=== PATIENT | female | born 1975 | race Caucasian/White ===

== ENCOUNTER 2022-06-29 09:02 | Outpatient (CLI) | payer OTHER, SELFPAY ==
--- NOTE | ~2022-06-29 | MM_ITS ---
EXAMINATION: MM scrn cooper implant BI w salome HISTORY: Screening mammogram TECHNIQUE: Craniocaudal and mediolateral oblique 3-D tomosynthesis images with implant displacement a nd synthetic 2-D images were generated. Craniocaudal and mediolateral oblique views of the breasts wi thout implant displacement were obtained using full field digital mammography. CAD analysis was submi tted and interpreted. COMPARISON: 10/11/2017 BREAST PARENCHYMAL COMPOSITION: The breasts are heterogeneously dense, which may obscure small masses . FINDINGS: There is no evidence of suspicious mass, calcification, or architectural distortion to sugg est malignancy in either breast. There has been no suspicious interval change. IMPRESSION: 1. No mammographic evidence of malignancy. 2. Recommend routine screening mammography in one year. BI-RADS Category 1: Negative Reviewed, dictated and finalized at location A. PRESS OPERATOR
== END 2022-06-29 09:03 | disposition home or self-care (01) ==
LOC: ANHIMG 09:04
PROVIDERS: PCP Family Medicine; Visit Provider Obstetrics & Gynecology
DX: Z12.31 Encounter for screening mammogram for malignant neoplasm of breast (principal)
CPT/HCPCS: 77063; 77067

== ENCOUNTER 2022-08-02 13:18 | Outpatient (NON) | payer OTHER, SELFPAY | END 2022-08-02 13:19 | disposition home or self-care (01) | LOC: ANHLAB 08-03 13:20 | PROVIDERS: PCP Family Medicine; Visit Provider Nurse Practitioner | DX: D18.01 Hemangioma of skin and subcutaneous tissue (principal) | CPT/HCPCS: 88305 ==

== ENCOUNTER 2024-03-01 10:41 | Emergency (ER) | payer OTHER, SELFPAY ==
--- NOTE | 2024-03-01 10:46 | ED.GENADULT ---
HPI - General Adult General Chief complaint: Upper Respiratory Infection Stated complaint: sore throat Time Seen by Provider: 03/01/24 10:46 Source: patient Mode of arrival: ambulatory Limitations: no limitations History of Present Illness HPI narrative: 48-year-old female patient presents to the [facility] with complaint sore throat x2 days. Patient states she had strep throat back in July had to be placed on Augmentin and Z-Dariel for 20 days because of persistence. Patient states she noticed white patches in the back of her throat today when to come in and get checked out. Patient states she does have a little bit of a cough but denies fevers, body aches or chills. Denies any abdominal pain, nausea, vomiting or diarrhea. Patient states she has been taking Zyrtec for her symptoms. Related Data Home Medications Medication Instructions Recorded Confirmed cetirizine 10 mg capsule (Zyrtec) 10 mg PO DAILY 09/20/21 03/01/24 cholecalciferol (vitamin D3) 25 25 mcg PO DAILY 08/22/23 03/01/24 mcg/drop (1,000 unit/drop) oral drops Allergies Allergy/AdvReac Type Severity Reaction Status Date / Time doxycycline AdvReac Unknown Nausea Verified 03/01/24 10:48 Review of Systems Review of Systems: CONSTITUTIONAL: Denies fever, chills, or sweats. EYES: Denies visual changes, redness, or discharge. ENT: Denies rhinorrhea, congestion, Positive sore throat, denies otalgia. CARDIOVASCULAR: Denies chest pain, palpitations, or edema. RESPIRATORY: positive cough , denies dyspnea. GASTROINTESTINAL: Denies abdominal pain, nausea, vomiting, or diarrhea. GENITOURINARY: Denies dysuria or hematuria. SKIN: Denies rash or itching. MUSCULOSKELETAL: Denies back pain, joint pain, or myalgia. NEUROLOGIC: Denies headache, numbness, or weakness. PSYCHIATRIC: Denies anxiety or depression. 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 There is no relevant family history pertinent to the presenting complaint. Exam Narrative: GENERAL: Well-appearing, well-nourished, and in no acute distress. HEAD: Normocephalic, atraumatic. EYES: PERRLA and EOMI. ENT: Nares clear, no rhinorrhea or epistaxis. Mucous membranes moist. post terrier pharynx with slight erythema but no tonsillar enlargement, no exudates or lesions present. NECK: Supple. No lymphadenopathy CHEST: Clear to auscultation. No respiratory distress. HEART: Regular rate and rhythm. No murmur heard. Normal peripheral pulses. ABDOMEN: Soft, nontender, nondistended, normal active bowel sounds. EXTREMITIES: Normal range of motion. No edema. SKIN: Warm, dry, no rash. NEURO: No focal deficits. Alert and oriented x3. Course Course Level of Care: Express Care Visit Reevaluation(s) Reevaluation #1: re-evaluated patient notified her that her strep swab today is negative. We will send it off to lab for culture if the culture comes back positive at that time we will call her antibiotics otherwise continue [id number]-vsnautu medication, warm salt water gargles, hot tea and honey as needed to help with the throat pain. Patient verbalized understanding denies any other questions or concerns at this time. Date: 03/01/24 Time: 11:32 Vital Signs Vital signs: Vital Signs Temperature 36.5 C 03/01/24 10:49 Pulse Rate 87 03/01/24 10:49 Respiratory Rate 18 03/01/24 10:49 Blood Pressure 122/74 03/01/24 10:49 Pulse Oximetry 96 03/01/24 10:49 Oxygen Delivery Room Air 03/01/24 10:49 Temperature 36.5 C 03/01/24 10:52 Pulse Rate 87 03/01/24 10:52 Respiratory Rate 18 03/01/24 10:52 Blood Pressure 122/74 03/01/24 10:52 Pulse Oximetry 96 03/01/24 10:52 Oxygen Delivery Room Air 03/01/24 10:52 Vital signs reviewed. Medical Decision Making MDM Narrative Medical decision making narrative: Plan care for patients to swab her today for strep. I will reassess her once this has resulted. Differential Diagnosis Differential Diagnosis: Differential diagnosis: Allergic rhinitis, chronic sinusitis, tonsillitis, acute sinusitis, infectious mononucleosis, seasonal influenza, pertussis, diphtheria, meningococcal disease, viral syndrome, viral bronchitis, RSV, COVID-19 Vital Signs Vital Signs: Vital Signs Temperature 36.5 C 03/01/24 10:49 Pulse Rate 87 03/01/24 10:49 Respiratory Rate 18 03/01/24 10:49 Blood Pressure 122/74 03/01/24 10:49 Pulse Oximetry 96 03/01/24 10:49 Oxygen Delivery Room Air 03/01/24 10:49 Temperature 36.5 C 03/01/24 10:52 Pulse Rate 87 03/01/24 10:52 Respiratory Rate 18 03/01/24 10:52 Blood Pressure 122/74 03/01/24 10:52 Pulse Oximetry 96 03/01/24 10:52 Oxygen Delivery Room Air 03/01/24 10:52 Lab Data Labs: Lab Results 03/01/24 Range/Units 11:08 POC Grp A Strep Screen Negative (Negative) Critical Care Time Critical Care Time Critical Care Time: No Discharge Plan Discharge Clinical Impression: Acute viral pharyngitis Patient Disposition: Home, Self-Care Condition: Stable Instructions: Antibiotic Form, Pharyngitis (ED) Additional Instructions: A sore throat can be caused by an infection from a virus or bacteria. Sore throat can also be caused by postnasal drip, allergies, and exposure to smoke. A viral sore throat last 3-4 days and cannot be treated with antibiotics. One type of sore throat virus, infectious mononucleosis ( mono ), can last for 3 weeks and older children. The germs that cause these infections are contagious and can be spread by coughing or sharing drinks or utensils. Contact her primary care physician or go to the ER if: Your trouble breathing or swallowing because her throat is swollen or sore. You're drooling because it hurts too much to swallow. You're painful lump in your throat go away after 5 days. You're fever is higher than 10 2??F or last longer than 3 days. You have confusion. You are blood in your throat. You're sore throat should feel better within 3-5 days without treatment if it is caused by virus. You may need the following: Ibuprofen or Tylenol as needed for pain or fever Gargle warm salt water Drink more liquids, cold or warm drinks may help soothe her throat. Humidifier in your room. Cough drops, ice, soft foods, or popsicles may help soothe her throat. A spoonful of honey could help with inflammation and soothe her throat. Wash her hands with soap and water, do not share food or drinks, throat away her toothbrush after 72 hours. Prescriptions: No Action Zyrtec 10 mg capsule 10 mg PO DAILY cholecalciferol (vitamin D3) 25 mcg/drop ( 1,000 unit/drop) drops 25 mcg PO DAILY valacyclovir [Valtrex] 500 mg tablet 500 mg PO Q12H Qty: 20 2RF Follow-up/Referrals: Moy Gonzalez MD [Primary Care Provider] - Time of Disposition: 11:30
[2024-03-01 10:49] VITALS: BP 122/74; PULSE 87; RESP 18; TEMP 36.5; O2SAT 96
[2024-03-01 10:52] VITALS: BP 122/74; PULSE 87; RESP 18; TEMP 36.5; O2SAT 96
[2024-03-01 11:10] LABS: EDSTREPNEGPOS1 Negative (Negative)
== END 2024-03-01 11:40 | disposition home or self-care (01) ==
PROVIDERS: Emergency Provider Nurse Practitioner Family; PCP Family Medicine
DX: J02.8 Acute pharyngitis due to other specified organisms (principal); Z87.891 Personal history of nicotine dependence; E06.3 Autoimmune thyroiditis
CPT/HCPCS: 87081; 87880; 99213; G0463

== ENCOUNTER 2024-03-22 09:09 | Emergency (ER) | payer OTHER, SELFPAY ==
--- NOTE | ~2024-03-22 | XR_ITS ---
EXAMINATION: XR chest 2V DATE: 03/22/2024 09:54 INDICATION: Cough and fever. TECHNIQUE: Frontal and lateral views of the chest were obtained. COMPARISON: None. FINDINGS: There are airspace opacities in right lower lobe, consistent with pneumonia. No pleural eff usion or pneumothorax. The heart size is normal. There are surgical clips in the abdomen. IMPRESSION: 1. Right lower lobe pneumonia. Reviewed, dictated and finalized at location A. NISTRATIVE OFFICE ASSISTANT
[2024-03-22 09:21] VITALS: BP 126/76; PULSE 97; RESP 16; TEMP 36.2; O2SAT 95
--- NOTE | 2024-03-22 09:38 | ED.URI ---
HPI - URI/Sore Throat General Chief Complaint: Upper Respiratory Infection Stated Complaint: fever Time Seen by Provider: 03/22/24 09:38 Source: patient Mode of arrival: ambulatory Limitations: no limitations History of Present Illness HPI Narrative: 48-year-old female presented for complaint of fever for 3 days. Started with a cough and wheezing yesterday. She states she hears expiratory wheezing worse when she is lying on the right side. Endorses sinus pressure fatigue and nausea. She denies shortness of breath, vomiting, lethargy. Not taking anything for symptoms. Related Data Home Medications Medication Instructions Recorded Confirmed cetirizine 10 mg capsule (Zyrtec) 10 mg PO DAILY 09/20/21 03/22/24 cholecalciferol (vitamin D3) 25 25 mcg PO DAILY 08/22/23 03/22/24 mcg/drop (1,000 unit/drop) oral drops Allergies Allergy/AdvReac Type Severity Reaction Status Date / Time doxycycline AdvReac Intermediate Nausea Verified 03/22/24 09:15 Review of Systems Review of Systems: ROS per HPI All systems reviewed & are unremarkable except as noted in HPI and below PMFSH Past Medical History Medical History Cellulitis Mckenna's disease Mastodynia of right breast Patellofemoral arthralgia of right knee Pes anserinus bursitis of right knee Strain of right patellar tendon Family History Family History Other Diabetes mellitus Social History Social History Smoking status: Former smoker Smoking end date: 04/22/97 Alcohol intake: current Comments At time of signature, I have reviewed and agree with nursing past medical, surgical, social and family history unless otherwise noted. Please see nursing chart for further information. There is no relevant family history pertinent to the presenting complaint Exam Narrative: GENERAL: Well-appearing, in no acute distress. EYES: EOMI. No redness or drainage. Conjunctivae normal. ENT: Mucous membranes pink and moist. No rhinorrhea. TMs normal bilaterally. Throat normal. Uvula midline. NECK: Normal AROM. Supple. CHEST: No respiratory distress. lungs clear to all campbell. Occasional harsh nonproductive cough HEART: Regular rate and rhythm. No murmur appreciated. ABDOMEN: Soft, nontender, nondistended, normal active bowel sounds. SKIN: Warm, dry, no rash. Capillary refill normal. Normal skin turgor. NEURO: Alert and oriented x3. Gait steady. PSYCH: Normal affect. Course Course Emergency Course: Patient is aware of diagnosis, understands and agrees to treatment plan. Anticipatory guidance given. Patient agrees to follow-up as directed and is aware of reasons to seek care at the emergency department. Portions of this record may have been created with voice recognition software Level of Care: Express Care Visit Vital Signs Vital signs: Vital Signs Temperature 97.1 F L 03/22/24 09:21 Pulse Rate 97 03/22/24 09:21 Respiratory Rate 16 03/22/24 09:21 Blood Pressure 126/76 03/22/24 09:21 Pulse Oximetry 95 03/22/24 09:21 Oxygen Delivery Room Air 03/22/24 09:21 Temperature 97.1 F L 03/22/24 09:21 Pulse Rate 97 03/22/24 09:21 Respiratory Rate 16 03/22/24 09:21 Blood Pressure 126/76 03/22/24 09:21 Pulse Oximetry 95 03/22/24 09:21 Oxygen Delivery Room Air 03/22/24 09:21 MDM - URI/Sore Throat MDM Narrative Medical decision making narrative: Discussed physical exam findings and chest x-ray. Advised supportive measures and signs/symptoms to go to the ER. Pt is appropriate for outpt treatment and f/u. Differential Diagnosis Differential diagnosis: Likely upper respiratory infection, sinusitis, viral infection, bronchitis, pharyngitis and other (pneumonia) Imaging Data Radiologist's impression: Patient: Christelle Ray : 1975 MR#: [id number] Age: 48 Acct:[id number] Loc: [facility] ADM Date: 03/22/24Attending Dr: Ordering Physician: Reva Coronel APRN Date of Service: 03/22/24 Procedure(s): XR chest 2V Accession Number(s): [id number] cc: Reva Coronel APRN; Moy Gonzalez MD~ EXAMINATION: XR chest 2V DATE: 03/22/2024 09:54 INDICATION: Cough and fever. TECHNIQUE: Frontal and lateral views of the chest were obtained. COMPARISON: None. FINDINGS: There are airspace opacities in right lower lobe, consistent with pneumonia. No pleural effusion or pneumothorax. The heart size is normal. There are surgical clips in the abdomen. IMPRESSION: 1. Right lower lobe pneumonia. Discharge Plan Discharge Clinical Impression: Pneumonia Qualifiers: Pneumonia type: due to unspecified organism Laterality: right Lung location: lower lobe of lung Qualified Code(s): J18.9 - Pneumonia, unspecified organism Patient Disposition: Home, Self-Care Condition: Stable Instructions: Antibiotic Form, Pneumonia (ED) Additional Instructions: Pneumonia is a lung infection that can cause a fever, cough, and trouble breathing. How it spreads: When someone with bacterial pneumonia coughs, sneezes, or talks, they release respiratory droplets into the air that can be inhaled by others.?You can also get pneumonia by touching a contaminated surface or object and then touching your mouth or nose. You're generally contagious for around 48 hours after starting antibiotics and your fever goes away.? To prevent the spread of pneumonia, you can:? ? Get vaccinated? ? Wash your hands often with soap and water for 20 seconds? ? Cover your mouth with a tissue when you cough or sneeze? ? Avoid people who are already sick with pneumonia? ? Stay home when you have pneumonia Take antibiotics as directed until complete. eat small frequent meals. Get lots of rest and drink fluids. Alternate Tylenol and ibuprofen for pain/fever Fbly-yjo-fqtzpid cough medication can cause drowsiness, take according to package directions If you have nasal congestion, you can take Zyrtec, Claritin along with Flonase spray Call your Primary Care Doctor and make a follow-up appointment in 3 days. Go to the ER for worsening symptoms or concerns Prescriptions: New azithromycin [Zithromax Z-Dariel] 250 mg tablet See Rx Instructions .ROUTE .COMPLEX Qty: 6 0RF Rx Instructions: For 250 mg dose pack: take 500 mg today (day 1), then 250 mg for 4 days (days 2-5) methylprednisolone [Medrol (Dariel)] 4 mg tablets,dose pack See Rx Instructions .ROUTE .COMPLEX Qty: 21 0RF Rx Instructions: orally per package directions No Action Zyrtec 10 mg capsule 10 mg PO DAILY cholecalciferol (vitamin D3) 25 mcg/drop ( 1,000 unit/drop) drops 25 mcg PO DAILY Follow-up/Referrals: Moy Gonzalez MD [Primary Care Provider] - Stand Alone Forms: Work/School Release IP Time of Disposition: 10:10
== END 2024-03-22 10:11 | disposition home or self-care (01) ==
PROVIDERS: Emergency Provider Nurse Practitioner Family; PCP Family Medicine
DX: J18.1 Lobar pneumonia, unspecified organism (principal); Z87.891 Personal history of nicotine dependence; E06.3 Autoimmune thyroiditis
CPT/HCPCS: 71046; 99213; G0463